=== PATIENT | female | born 1955 | race African-American/Black ===

== ENCOUNTER 2016-12-16 08:26 | Day surgery (SDC) | payer BC, OTHER ==
[2016-12-15 17:30] VITALS: BMI 38.9
--- NOTE | 2016-12-16 08:06 | HP ---
Satellite [facility] - Chief Complaint Chief Complaint: left knee pain - Past Medical History Allergies/Adverse Reactions: Allergies Allergy/AdvReac Type Severity Reaction Status Date / Time codeine [Codeine] Allergy Severe Difficulty Verified 12/15/16 17:31 Breathing - Current Medications Current Medications: Home Medications Medication Instructions Recorded Albuterol Sulfate Inhaler - 1 - 2 inh IH PRN 09/18/12 [Ventolin HFA Inhaler -] Levothyroxine [Synthroid -] 50 mcg PO DAILY 09/18/12 Valacyclovir HCl [Valtrex -] 500 mg PO DAILY 09/18/12 Amlodipine Besylate/Benazepril 1 each PO DAILY 12/15/16 [Lotrel 5-10 mg Capsule] Atorvastatin Ca [Lipitor] 20 mg PO HS 12/15/16 Ibuprofen [Motrin -] 600 mg PO TID 12/15/16 Oxycodone HCl/Acetaminophen 1 - 2 tab PO Q6H #50 tab MDD 8 12/16/16 [Percocet 5-325 mg Tablet -] Satellite Physical Exam - Physical Examination General Appearance: Well Nourished, Well Developed, Alert & Oriented x3 ENT: Clear Lung: Normal air movement Heart: Regular rate & rhythm Extremities: Other (left knee- + swelling, + ttp, decr rom, + mcmurrays, +apleys , nvi MRi + mt) Neurological: Intact, Alert, Oriented Satellite Impression/Plan - Impression/Plan Impression: left knee internal derangement Operative Procedure: left knee arthroscopy Date to be Performed: 12/16/16
[2016-12-16] MEDS ORDERED: LIDOCAINE 1%/EPI 1:100000 (50 ML MULTI DOSE VIAL) ONE (08:53)
[2016-12-16] MEDS ORDERED: BUPIVACAINE HCL/PF 0.5% (5MG/ML) 10 ML VIAL ONE (08:55)
[2016-12-16] MEDS ORDERED: ONDANSETRON 4 MG/2 ML VIAL IVPUSH PRN (09:01)
[2016-12-16] MEDS ORDERED: LACTATED RINGERS SOLUTION 1,000 ML IV SCH (09:15)
[2016-12-16] MEDS ORDERED: MIDAZOLAM HCL 2 MG/2 ML SINGLE DOSE VIAL ONE (10:15)
[2016-12-16] MEDS ORDERED: PROPOFOL 20 ML ONE (10:15)
[2016-12-16] MEDS ORDERED: KETOROLAC TROMETHAMINE 30 MG/1 ML VIAL ONE (10:33)
[2016-12-16] MEDS ORDERED: DEXAMETHASONE SOD PHOSPHATE 4 MG/1 ML VIAL ONE (10:33)
--- NOTE | 2016-12-16 11:12 | OP ---
Operative Note - Note: Operative Date: 12/16/16 Pre-Operative Diagnosis: internal derangement left knee Operation: arthroscopy left knee with partial LM and chondroplasty MFC and LFC Post-Operative Diagnosis: Same as Pre-op Surgeon: Rodolfo Tello Anesthesia: General Estimated Blood Loss (mls): 0 Operative Report Dictated: Yes
--- NOTE | 2016-12-16 12:01 | OP ---
DATE OF OPERATION: 12/16/2016 PREOPERATIVE DIAGNOSIS: Internal derangement, left knee. POSTOPERATIVE DIAGNOSIS: Internal derangement, left knee. PROCEDURE: Arthroscopy, left knee, partial lateral meniscectomy, and chondroplasty of the medial femoral condyle and lateral femoral condyle. SURGICAL ATTENDING: Rodolfo Tello MD ANESTHESIA: General LMA. CLOSURE: 4-0 nylon. COMPLICATIONS: None. CONDITION: To recovery room in stable condition. DESCRIPTION OF OPERATIVE PROCEDURE: Patient was taken to the operating room on December 16, 2016. The left lower extremity was prepped and draped in the usual sterile fashion. Superolateral, mediolateral, and infrapatellar portal sites were infiltrated with 1% Xylocaine with epinephrine. Superolateral portal was made with a 15 blade followed by blunt trocar. The knee was aspirated and then inflated with cocktail 10 mL of 1% Xylocaine, 10 mL of 0.5% Marcaine, and 20 mL with arthroscopic saline. Medial and lateral infrapatellar portals were then made with the 15 blade followed by blunt trocar. The scope was placed in the lateral infrapatellar portal and up into the suprapatellar pouch. Pouch was visualized to be clean. The medial and lateral gutters were visualized to be clean. The undersurface of the patella and trochlea were basically intact. With valgus stress on the knee, there were some extensive changes of the medial femoral condyle, and articular cartilage was debrided using the shaver. The medial meniscus, however, was found to be intact with probing and was left in situ. The medial tibial plateau was found to be intact as well at 90 degrees. The ACL was visualized, probed, and found to be intact. In the figure 4 position, lateral compartment was entered. Lateral meniscus had a radial tear of its mid portion. This was debrided back to smooth stable meniscal tissues with a meniscal biter and arthroscopic shaver. The lateral femoral condyle had quarter-sized 3-4 lesions that were debrided using the shaver down towards some bleeding bone. The rest of the lateral femoral condyle was found to be intact. The knee was irrigated with copious amounts of irrigation. The portals were closed with 4-0 nylon. A sterile pressure dressing was placed over the patients knee. Patient awakened from anesthesia and transferred to recovery in stable condition. No complications. Estimated blood loss negligible. Richar [id number]
[2016-12-16 12:25] VITALS: TEMP 97.8
[2016-12-16] MEDS ORDERED: ACETAMINOPHEN 325 MG TABLET (FP) ONE (12:53)
[2016-12-16] MEDS ORDERED: ACETAMINOPHEN 325 MG TABLET (FP) PO ONE (12:56)
[2016-12-16 14:11] VITALS: BP 129/80; PULSE 80
--- NOTE | 2016-12-19 13:53 | PATH ---
Surgical Pathology Report Patient Name: FERNANDO GALLO [facility]. Rec. #: [id number] /Age/Gender: 1955 (Age: 61) / F Account: [id number] Location: [facility] SURGICAL Taken: 12/16/2016 Received: 12/16/2016 Reported: 12/19/2016 Physicians: Rodolfo Tello M.D. Specimen(s) Received SHAVINGS LEFT KNEE Clinical History Left knee internal derangement Final Diagnosis SOFT TISSUE, LEFT KNEE, ARTHROSCOPIC SHAVINGS: SYNOVIUM AND FIBROCARTILAGE WITH MYXOHYALINE DEGENERATION. Electronically Signed Kraig Lewis M.D. Gross Description Received in formalin, labeled "left knee shavings" is a 4.5 x 3.6 x 0.5 cm aggregate of madrigal-yellow soft tissue fragments. A internet sales representative portion is submitted in one cassette. /12/16/2016
== END 2016-12-16 14:11 | disposition home or self-care (01) ==
LOC: JASU-SURG 08:26
PROVIDERS: ATTEND Orthopaedic Surgery
PROC: 0SBD4ZZ Excision of Left Knee Joint, Percutaneous Endoscopic Approach (ICD-10-PCS; principal; 2016-12-16 10:15)
DX: M23.92 Unspecified internal derangement of left knee (principal)
CPT/HCPCS: 88304-TC; 94760; 97116-GP

== ENCOUNTER 2020-10-22 04:08 | Day surgery (SDC) | payer OTHER, MEDICARE ==
[2020-10-20 15:16] VITALS: BMI 40.3
[~2020-10-22 04:08] MED LIST: TOBRAMYCIN/DEXAMETHASONE OPHTH. OINTMENT 1 TUBE TP ONE
[2020-10-22] MEDS ORDERED: KETOROLAC TROMETHAMINE 0.5% EYE DROP 1 DROP DROPS ONE (06:20)
[2020-10-22] MEDS ORDERED: TROPICAMIDE 1% OPHTH SOLN 15 ML BOTTLE ONE (06:20)
[2020-10-22] MEDS ORDERED: CIPROFLOXACIN HCL 0.3% OPHTH 2.5ML BOTTLE ONE (06:20)
[2020-10-22] MEDS: PHENYLEPHRINE 2.5% OPHTH SOLN 15 ML BOTTLE OP SCH ×3 (06:30→06:50)
[2020-10-22] MEDS: TROPICAMIDE 1% OPHTH SOLN 15 ML BOTTLE OP SCH ×2 (06:30→06:50)
[2020-10-22] MEDS: CIPROFLOXACIN HCL 0.3% OPHTH 2.5ML BOTTLE OP SCH ×3 (06:30→06:50)
[2020-10-22] MEDS: KETOROLAC TROMETHAMINE 0.5% EYE DROP 1 DROP DROPS OP SCH ×2 (06:40→06:50)
[2020-10-22] MEDS ORDERED: ACETAMINOPHEN 325 MG TABLET (FP) PO PRN (07:16)
[2020-10-22] MEDS ORDERED: TETRACAINE 0.5% OPHTH SOLN 2 ML BOTTLE TP ONE (07:44)
[2020-10-22] MEDS ORDERED: POVIDONE-IODINE 5% OPHTHALMIC PREP 30 ML SOLUTION OD ONE (07:47)
[2020-10-22] MEDS ORDERED: LIDOCAINE HCL 1% PRESERVATIVE FREE - 30ML VIAL IO ONE (07:52)
[2020-10-22] MEDS ORDERED: BSS (NA/CA/MG/K) BALANCED SALT SOLUTION OPHTH SOLN 15 ML BOTTLE OD ONE (07:52)
[2020-10-22] MEDS ORDERED: CHONDROITIN SU A/HYALUR SOD 1 KIT IO ONE (07:52)
[2020-10-22] MEDS ORDERED: EPINEPHrine/PF 1 MG/1 ML (1:1,000) AMPULE SQ ONE (07:57)
[2020-10-22] MEDS ORDERED: TOBRAMYCIN/DEXAMETHASONE OPHTH. OINTMENT 1 TUBE TP ONE (08:10)
[2020-10-22] MEDS ORDERED: ONDANSETRON 4 MG/2 ML VIAL IVPUSH PRN (08:57)
[2020-10-22] MEDS ORDERED: LACTATED RINGERS SOLUTION 1,000 ML IV SCH (09:00)
[2020-10-22 09:08] VITALS: BP 117/64; PULSE 66; TEMP 97.8
== END 2020-10-22 09:30 | disposition home or self-care (01) ==
LOC: JASU-SURG 04:08
PROVIDERS: ATTEND Ophthalmology
PROC: 08RJ3JZ Replacement of Right Lens with Synthetic Substitute, Percutaneous Approach (ICD-10-PCS; principal; 2020-10-22 07:30)
DX: H25.11 Age-related nuclear cataract, right eye (principal)

== ENCOUNTER 2022-11-29 06:02 | Day surgery (SDC) | payer OTHER ==
[2022-11-28 12:43] VITALS: BMI 39.9
[2022-11-29] MEDS ORDERED: TRANEXAMIC ACID 1000 MG/10 ML VIAL IVPUSH ONE (06:32)
[2022-11-29] MEDS ORDERED: CELECOXIB 200 MG CAPSULE PO ONE (06:32)
[2022-11-29] MEDS ORDERED: CEFAZOLIN 2 GM in DEXTROSE 5%-WATER - 50 ML IVPB ONE (06:32)
[2022-11-29] MEDS ORDERED: MIDAZOLAM HCL 2 MG/2 ML SINGLE DOSE VIAL ONE ×2 (07:06→08:23)
[2022-11-29] MEDS ORDERED: PROPOFOL 20 ML ONE (07:06)
[2022-11-29] MEDS ORDERED: BUPIVACAINE HCL 50 ML ONE (07:10)
[2022-11-29] MEDS ORDERED: ceFAZolin SODIUM 1 GM VIAL ONE (07:11)
[2022-11-29] MEDS ORDERED: VANCOMYCIN 1,000 MG VIAL (RESTRICTED TO ID ONLY) ONE (07:11)
[2022-11-29] MEDS ORDERED: ROPIVACAINE HCL 0.5% 30ML VIAL ONE (08:23)
[2022-11-29] MEDS ORDERED: VANCOMYCIN 1,000 MG VIAL (RESTRICTED TO ID ONLY) IVPB ONE (09:05)
[2022-11-29] MEDS ORDERED: HYDROCHLOROTHIAZIDE 12.5 MG CAPSULE (FP) PO PRN (09:37)
[2022-11-29] MEDS ORDERED: ALBUTEROL SO4 HFA INHALER IH PRN (09:37)
[2022-11-29] MEDS ORDERED: ONDANSETRON 4 MG/2 ML VIAL IVPUSH PRN (09:38)
[2022-11-29] MEDS ORDERED: MAG HYDROX/AL HYDROX/SIMETH 30 ML UNIT-DOSE CUP PO PRN (09:38)
[2022-11-29] MEDS ORDERED: LACTATED RINGERS SOLUTION 1,000 ML IV SCH (09:45)
[2022-11-29] MEDS ORDERED: ATORVASTATIN CA 20 MG TABLET (FP) PO SCH (09:45)
[2022-11-29] MEDS: PATIENT'S OWN MEDICATION (NON-FORMULARY) (Clonidine Hcl [Clonidine Hcl Er] 0.1 MG Tab.Er.1 PO SCH (11:45)
[2022-11-29] MEDS: LISINOPRIL 10 MG TABLET PO SCH ×2 (11:45→11:51)
[2022-11-29] MEDS: SENNOSIDES/DOCUSATE COMBO (SENNA PLUS) TABLET (UD) PO SCH ×2 (11:46→22:07)
[2022-11-29] MEDS: metoPROLOL SUCCINATE 25 MG TAB.SR.24H (FP) PO SCH ×3 (11:46→22:07)
[2022-11-29] MEDS: valACYclovir HCL 500 MG TABLET (FP) PO SCH (11:46)
[2022-11-29] MEDS: oxyCODONE HCL 10 MG SUSTAINED ACTING TABLET PO SCH ×2 (11:46→22:07)
[2022-11-29] MEDS: PANTOPRAZOLE 40 MG TABLET PO SCH ×2 (11:46→11:50)
[2022-11-29] MEDS: MULTIVITAMINS THER W-MINERALS COMBO TABLET (FP) PO SCH (11:47)
[2022-11-29] MEDS: LEVOTHYROXINE NA 50 MCG TABLET (FP) PO SCH (11:47)
[2022-11-29] MEDS: amLODIPine BESYLATE 5 MG TABLET (FP) PO SCH (11:50)
[2022-11-29] MEDS ORDERED: ATORVASTATIN CA 40 MG TABLET (FP) PO SCH (12:06)
[2022-11-29] MEDS: oxyCODONE HCL 5 MG TABLET PO PRN ×2 (13:34→16:48)
[2022-11-29] MEDS ORDERED: DEXTROSE 5%-WATER 100 ML IVPB ONE (16:36)
[2022-11-29] MEDS: CEFAZOLIN SODIUM 2 GM in DEXTROSE 5%-WATER 100 ML IVPB SCH (16:49)
[2022-11-29 21:30] VITALS: RESP 18
[2022-11-29] MEDS: ACETAMINOPHEN 325 MG TABLET (FP) PO PRN (22:08)
[2022-11-30] MEDS: CEFAZOLIN SODIUM 2 GM in DEXTROSE 5%-WATER 100 ML IVPB SCH (00:21)
[2022-11-30] MEDS: ACETAMINOPHEN 325 MG TABLET (FP) PO PRN ×2 (04:03→09:33)
[2022-11-30] MEDS: oxyCODONE HCL 5 MG TABLET PO PRN ×3 (04:09→13:40)
[2022-11-30] MEDS: LEVOTHYROXINE NA 50 MCG TABLET (FP) PO SCH (06:57)
[2022-11-30] MEDS ORDERED: ASPIRIN 325 MG TABLET PO SCH (08:00)
[2022-11-30] MEDS: PANTOPRAZOLE 40 MG TABLET PO SCH (09:30)
[2022-11-30] MEDS: amLODIPine BESYLATE 5 MG TABLET (FP) PO SCH (09:30)
[2022-11-30] MEDS: LISINOPRIL 10 MG TABLET PO SCH (09:31)
[2022-11-30] MEDS: oxyCODONE HCL 10 MG SUSTAINED ACTING TABLET PO SCH (09:31)
[2022-11-30] MEDS: SENNOSIDES/DOCUSATE COMBO (SENNA PLUS) TABLET (UD) PO SCH (09:32)
[2022-11-30] MEDS: metoPROLOL SUCCINATE 25 MG TAB.SR.24H (FP) PO SCH (09:33)
[2022-11-30] MEDS: MULTIVITAMINS THER W-MINERALS COMBO TABLET (FP) PO SCH (09:33)
[2022-11-30] MEDS: valACYclovir HCL 500 MG TABLET (FP) PO SCH (09:34)
[2022-11-30 09:52] LABS: HEMATOCRIT 33.7 % (32.4-45.2); HEMOGLOBIN 11.4 GM/dL (10.7-15.3); MEAN CELL VOLUME 85.2 fl (80-96); MEAN PLT VOLUME 9.1 fl (7.5-11.1); PLATELET COUNT 184 10^3/uL (134-434); RBC 3.95 M/mm3 (3.60-5.2); RDW 14.7 % (11.6-15.6)
[2022-11-30] MEDS ORDERED: cloNIDine HCL 0.1 MG TABLET PO SCH (11:30)
[2022-11-30] MEDS: PATIENT'S OWN MEDICATION (NON-FORMULARY) (Clonidine Hcl [Clonidine Hcl Er] 0.1 MG Tab.Er.1 PO SCH (11:53)
[2022-11-30 14:02] VITALS: BP 124/61; PULSE 74; TEMP 98.4
== END 2022-11-30 16:45 | disposition home health service (06) ==
LOC: FASUSAT 06:02 → FM/S 11:21 → FASUSAT 11-30 16:45
PROVIDERS: ATTEND Orthopaedic Surgery
PROC: 8E0Y0CZ Robotic Assisted Procedure of Lower Extremity, Open Approach (ICD-10-PCS; 2022-11-29)
PROC: 0SRB0JA Replacement of Left Hip Joint with Synthetic Substitute, Uncemented, Open Approach (ICD-10-PCS; principal; 2022-11-29 08:28)
DX: M16.12 Unilateral primary osteoarthritis, left hip (principal)
CPT/HCPCS: 20985; 27130; C1776; S2900; 36415; 73502-TC-LT-FY; 85027; 88305-TC; 88311-TC; 94760; 97010-GP; 97116-GP; 97162-GP